=== PATIENT | male | born 1945 | race Caucasian/White ===

== ENCOUNTER 2017-08-28 21:22 | Emergency (ER) | payer MEDICARE, OTHER ==
[~2017-08-28 21:22] MED LIST: ISOVUE-370 76%-LOCM 1 ML ONE
[2017-08-28] MEDS ORDERED: Lidocaine 1% PF 5 ML VIAL ONE (21:46)
[2017-08-28] MEDS ORDERED: Ondansetron HCl/PF 4 MG/2 ML Vial ONE (22:03)
[2017-08-28] MEDS ORDERED: Morphine 4 MG/ML Carpuject ONE (22:03)
[2017-08-28 22:09] LABS: #Basophils 0.1 thou/uL (0.0-0.2); #Eosinphils 0.1 thou/uL (0.0-0.7); #Monocytes 0.4 thou/uL (0.11-0.59); #Neutrophils 6.3 thou/uL (1.40-6.50); %Basophils 0.6 % (0.0-1.0); %Eosinophils 1.2 % (0.0-10.0); %Lymphocytes 13.1 % (21.0-51.0); %Monocytes 5.4 % (0.0-10.0); %Neutrophils 79.7 % (42.0-75.0); Hemoglobin 16.3 g/dL (14.0-18.0); Mean Corpuscular HGB CONC 33.7 g/dL (32.0-36.0); Mean Corpuscular Hemoglobin 33.2 pg (27.0-31.0); Mean Corpuscular Volume 98.3 fl (80.0-94.0); Mean Platelet Volume 7.1 fL (7.4-10.4); Platelet Count 263 thou/uL (130-400); RBC Distribution Width 11.1 % (11.5-14.5); Red Blood Cell (RBC) Count 4.92 mill/uL (4.70-6.10); White Blood Cell (WBC) Count 7.9 thou/uL (4.8-10.8)
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
[2017-08-28 22:26] LABS: Bilirubin Negative (Negative); Blood, Urine Negative (Negative); Clarity CLEAR (Clear); Glucose, Urine (Dipstick) Negative (Negative); Leukocyte Negative (Negative); Nitrite Negative (Negative); Protein, Urine (Dipstick) Negative (Neg-Trace); Specific Gravity, Urine 1.034 (1.002-1.036); Urobilinogen 0.2 mg/dL (0.2-1.0)
[2017-08-28 22:31] LABS: ALT (SGPT) 24 U/L (8-55); AST (SGOT) 25 U/L (5-34); Albumin 3.9 g/dL (3.4-4.8); Alcohol Less than 10 mg/dL (Less than 10); Alkaline Phosphatase 78 U/L (40-150); Anion Gap 13 mmol/L (10-20); BUN (Urea Nitrogen) 27 mg/dL (8.4-25.7); Bilirubin, Total 0.3 mg/dL (0.2-1.2); Calc. Creatinine Clearance 0 mL/min (70-130); Calcium 10.4 mg/dL (7.8-10.44); Carbon Dioxide 26 mmol/L (23-31); Chloride 105 mmol/L (98-107); Estimated GFR-MDRD 77; Globulin 2.9 g/dL (2.4-3.5); Glucose 101 mg/dL (80-115); Potassium 4.2 mmol/L (3.5-5.1); Protein, Total 6.8 g/dL (5.8-8.1); Sodium 140 mmol/L (136-145)
[2017-08-28] MEDS ORDERED: Lidocaine 1% (PF) 30 ML VIAL ONE (22:48)
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
[2017-08-29] MEDS ORDERED: Adacel (T-DAP) 0.5 ML VIAL ONE (00:33)
[2017-08-29] MEDS ORDERED: traMADol HCl 50 MG TAB ONE (01:02)
== END 2017-08-29 01:07 | disposition home or self-care (01) ==
LOC: ERS 21:22
DX: S01.511A Laceration without foreign body of lip, initial encounter (principal); F03.90 Unspecified dementia, unspecified severity, without behavioral disturbance, psychotic disturbance, mood disturbance, and anxiety; E03.9 Hypothyroidism, unspecified; Z79.899 Other long term (current) drug therapy; V89.2XXA Person injured in unspecified motor-vehicle accident, traffic, initial encounter
CPT/HCPCS: 70450; 70486; 71045; 71260; 72125; 74177; 80053; 80307; 81003; 85025; 90471; 90715; 96374; 96375; J2001; J2270; J2405

== ENCOUNTER 2024-09-18 10:56 | Day surgery (SDC) | payer MEDICARE ==
[2024-09-17 15:12] VITALS: BMI 24.4
[2024-09-18] MEDS ORDERED: PROPOFOL 20 ML ONE (11:59)
[2024-09-18] MEDS ORDERED: fentaNYL 50 mcg/mL 1 mL Vial ONE ×3 (11:59→15:29)
[2024-09-18] MEDS ORDERED: Lidocaine 1% PF 5 ML VIAL ONE (11:59)
[2024-09-18] MEDS ORDERED: Heparin 5,000 UNITS/ML VIAL ONE (12:06)
[2024-09-18] MEDS ORDERED: Bupivacaine 0.25% HCL 30 ML VIAL ONE (12:23)
[2024-09-18] MEDS ORDERED: EPINEPHrine 1 MG/ML VIAL ONE (12:23)
[2024-09-18] MEDS ORDERED: CEFAZOLIN 2 GM VIAL ONE (12:52)
[2024-09-18] MEDS ORDERED: ePHEDrine Sulfate 50 MG/10 ML VIAL ONE (13:09)
[2024-09-18] MEDS ORDERED: PHENYLEPHRINE-NS 100 MCG/ML 10 ML SYRINGE ONE (13:35)
[2024-09-18] MEDS ORDERED: Ondansetron PF 4 MG/2 ML Vial ONE (14:27)
[2024-09-18] MEDS ORDERED: HYDROcodone/Acetaminophen 5/325 mg Tablet ONE (16:14)
== END 2024-09-18 16:50 | disposition home or self-care (01) ==
LOC: SDC 10:56
PROVIDERS: ATTEND Plastic Surgery
PROC: 0HB0XZZ Excision of Scalp Skin, External Approach (ICD-10-PCS; principal; 2024-09-18)
DX: C44.42 Squamous cell carcinoma of skin of scalp and neck (principal); E03.9 Hypothyroidism, unspecified; K21.9 Gastro-esophageal reflux disease without esophagitis
CPT/HCPCS: 11624; 13121; 13122; J0171; J0665; J1644; J2405; J2704; J3010; 88305; 88331; 88332; 93005; 93010